=== PATIENT | male | born 1965 | race Asian ===

== ENCOUNTER 2022-04-21 12:47 | Inpatient (IN) | payer OTHER ==
[~2022-04-21] VITALS: Ht 172.7 cm; Wt 86.3 kg
[2022-04-21] MEDS ORDERED: CloNIDine HCL 0.2 MG TABLET PO ONE (14:45)
[2022-04-21] MEDS ORDERED: ACETAMINOPHEN 325 MG TABLET PO PRN ×2 (15:00→15:30)
[2022-04-21 15:01] LABS: COVID AG,FIA SOURCE NASOPHARYNGEAL
[2022-04-21] MEDS ORDERED: ONDANSETRON HCL 4 MG TABLET PO PRN (15:30)
[2022-04-21] MEDS ORDERED: GuaiFENesin/D-METHORPHAN [SUGAR-FREE] 200-20MG/10 ML SYRUP UDCUP PO PRN (15:30)
[2022-04-21] MEDS ORDERED: MAGNESIUM HYDROXIDE SUSPENSION 30 ML UDCUP PO PRN (15:30)
[2022-04-21] MEDS ORDERED: PETROLATUM,WHITE 28 GM JELLY TP PRN (15:30)
[2022-04-21] MEDS ORDERED: IBUPROFEN 400 MG TABLET PO PRN (15:30)
[2022-04-21] MEDS ORDERED: LOPERAMIDE HCL 2 MG CAPSULE PO PRN (15:30)
[2022-04-21] MEDS ORDERED: DOCUSATE SODIUM 100 MG CAPSULE PO PRN (15:30)
[2022-04-21] MEDS ORDERED: CloNIDine HCL 0.1 MG TABLET PO PRN (15:30)
[2022-04-21] MEDS ORDERED: MAG HYDROX/AL HYDROX/SIMETH ES 30 ML SUSPENSION UDCUP PO PRN (15:30)
[2022-04-21] MEDS ORDERED: ALBUTEROL SULFATE HFA 90 MCG/PUFF 8 GM INHALER IH PRN (15:30)
[2022-04-21] MEDS ORDERED: NICOTINE 14 MG/24 HOUR PATCH TD PRN (15:30)
[2022-04-21 16:50] VITALS: BP 134/84
[2022-04-21 19:43] VITALS: BP 109/73
[2022-04-22 04:02] VITALS: BP 106/69
[2022-04-22 08:03] VITALS: BP 114/72
[2022-04-22 08:09] VITALS: BP 134/97
[2022-04-22] MEDS ORDERED: AmLODIPine BESYLATE 10 MG TABLET PO SCH (09:00)
[2022-04-22] MEDS ORDERED: AMLO-258 PO (12:17)
== END 2022-04-22 13:10 | DRG 305 ==
LOC: EMS 12:47 → 6S 16:30 → EMS 16:30
PROVIDERS: ADMIT Internal Medicine; ATTEND Internal Medicine
DX: I10 Essential (primary) hypertension (principal); Z20.822 Contact with and (suspected) exposure to COVID-19; Z53.20 Procedure and treatment not carried out because of patient's decision for unspecified reasons; Z79.899 Other long term (current) drug therapy
CPT/HCPCS: 71045; 93005; 99285; 36415-L1; 36415-TC